=== PATIENT | male | born 1960 | race Hispanic/Latino ===

== ENCOUNTER 2023-04-23 14:47 | Emergency (ER) | payer MEDICAID ==
[~2023-04-23] VITALS: Ht 172.7 cm; Wt 88.5 kg
[2023-04-23 14:48] VITALS: BP 128/78; PULSE 80; RESP 16
[2023-04-23] MEDS ORDERED: KETOROLAC 30MG VIAL (30MG/ML) IM ONE (17:30)
[2023-04-23] MEDS ORDERED: DICL20GE TP (18:17)
[2023-04-23] MEDS ORDERED: LIDOP TP (18:17)
== END 2023-04-23 18:34 | disposition home or self-care (01) ==
LOC: EDH 14:47
DX: M12.862 Other specific arthropathies, not elsewhere classified, left knee (principal); I10 Essential (primary) hypertension; Z79.899 Other long term (current) drug therapy; Z98.890 Other specified postprocedural states
CPT/HCPCS: 99283; 73562; 96372; J1885

== ENCOUNTER 2023-10-05 17:17 | Observation (INO) | payer MEDICAID ==
[~2023-10-05] VITALS: Ht 175.3 cm; Wt 57.7 kg
[~2023-10-05 17:17] MED LIST: DICL20GE TP; LIDOP TP
[2023-10-05 18:06] LABS: BASOPHILS # (AUTO) 0.03 K/uL (0.00-0.20); BASOPHILS % (AUTO) 0.4 % (0.0-5.0); HEMATOCRIT 26.3 % (42-54); IMMATURE GRANULOCYTE ABSOLUTE 0.04 K/uL (0-1); LYMPHOCYTES # (AUTO) 1.7 K/uL (1.0-4.8); LYMPHOCYTES % (AUTO) 24.7 % (21.0-51.0); MEAN CORPUSCULAR HEMOGLOBIN 29.5 pg (27.0-33.0); MEAN CORPUSCULAR HGB CONC 33.5 g/dL (32.0-36.0); MEAN CORPUSCULAR VOLUME 88.3 fL (79-99); MONOCYTES # (AUTO) 0.3 K/uL (0.1-1.0); MONOCYTES % (AUTO) 4.6 % (3.0-13.0); NEUTROPHILS # (AUTO) 4.7 K/uL (1.8-7.7); NEUTROPHILS % (AUTO) 69.7 % (40.0-77.0); PLATELET COUNT (AUTO) 164 K/uL (130-400); RED BLOOD CELL COUNT(AUTO) 2.98 MIL/uL (4.50-6.20); RED CELL DISTRIBUTION WIDTH 15.5 % (11.0-15.5); WHITE BLOOD COUNT (AUTO) 6.7 K/uL (4.8-10.8)
[2023-10-05] MEDS: LACTATED RINGERS 1000ML 1,000 ML IV ONE (18:15)
[2023-10-05] MEDS: ACETAMINOPHEN 325 MG TAB PO ONE (18:15)
[2023-10-05 18:22] LABS: CARBON DIOXIDE 27 mmol/L (21-32); CHLORIDE 103 mmol/L (101-111); CREATININE 1.2 mg/dL (0.5-1.3); GLOMERULAR FILTR. RATE CALC 68 mL/min (>90); GLUCOSE,RANDOM 76 mg/dL (70-105); POTASSIUM 4.3 mmol/L (3.5-5.1); SODIUM SERUM 136 mmol/L (136-145); UREA NITROGEN, BLOOD 42 mg/dL (7-18)
[2023-10-05 18:28] LABS: INR 1.37 (0.85-1.15); PARTIAL THROMBOPLASTIN TIME 66.6 SEC (26.3-35.5); PROTHROMBIN TIME 14.3 SEC (9.6-11.6)
[2023-10-05 18:31] LABS: ALANINE AMINOTRANSFERASE 44 U/L (12-78); ALBUMIN 2.5 g/dL (3.5-5.0); AMMONIA 30 umol/L (11-32); ASPARTATE AMINOTRANSFERASE 40 U/L (10-37); BILIRUBIN,TOTAL 0.4 mg/dL (0.2-1.0); CREATINE KINASE, TOTAL 133 U/L (21-232); TOTAL PROTEIN, SERUM 6.1 g/dL (6.0-8.3)
[2023-10-05 18:33] LABS: ACETAMINOPHEN < 1 mcg/mL (10-29); ALCOHOL, BLOOD < 3 mg/dL (0-10)
[2023-10-05 18:35] LABS: B-TYPE NATRIURETIC PEPTIDE 34 pg/mL (0-100)
[2023-10-05] MEDS: ZIPRASIDONE MESYLATE 20 MG/VIAL IM ONE ×2 (19:54)
[2023-10-05 19:58] LABS: APPEARANCE,URINE CLEAR (CLEAR); BILIRUBIN,URINE NEGATIVE (NEGATIVE); COLOR,URINE LIGHT-YELLOW (YELLOW); GLUCOSE, URINE (UA) NEGATIVE (NEGATIVE); KETONES,URINE NEGATIVE (NEGATIVE); LEUKOCYTE ESTERASE ,URINE NEGATIVE Leu/uL (NEGATIVE); NITRATE,URINE NEGATIVE (NEGATIVE); OCCULT BLOOD,URINE NEGATIVE (NEGATIVE); PH,URINE 6.5 (5.0-8.0); PROTEIN,URINE NEGATIVE (NEGATIVE); UROBILINOGEN,URINE 0.2 mg/dL (0.2-1.0)
[2023-10-05 19:59] LABS: ADD UA MICROSCOPIC NO
[2023-10-05 20:05] LABS: AMPHET/METH SCREEN,URINE NEGATIVE (NEGATIVE); BARBITURATE SCREEN, URINE NEGATIVE (NEGATIVE); BENZODIAZEPINES SCREEN,URINE NEGATIVE (NEGATIVE); CANNABINOID SCREEN,URINE NEGATIVE (NEGATIVE); COCAINE SCREEN,URINE NEGATIVE (NEGATIVE); OPIATE SCREEN,URINE NEGATIVE (NEGATIVE); PHENCYCLIDINE SCREEN,URINE NEGATIVE (NEGATIVE)
[2023-10-05 20:49] VITALS: TEMP 98.7
[2023-10-05] MEDS ORDERED: ONDANSETRON 4MG INJ IV PRN (22:00)
[2023-10-05] MEDS ORDERED: FAMOTIDINE 20MG VIAL IV PRN (22:00)
[2023-10-05] MEDS ORDERED: DEXTROSE 50%-WATER 50 ML DISP.SYRIN IV PRN (22:00)
[2023-10-05] MEDS ORDERED: MAGNESIUM 2GM PREMIX 50ML 50 ML IV PRN (22:00)
[2023-10-05] MEDS ORDERED: GLUCAGON 1MG KIT 1 MG ML IM PRN (22:00)
[2023-10-05] MEDS ORDERED: ZOLPIDEM TARTRATE 5 MG TAB PO PRN (22:00)
[2023-10-05] MEDS ORDERED: ACETAMINOPHEN 325 MG TAB PO PRN ×3 (22:00)
[2023-10-05] MEDS ORDERED: POTASSIUM CHLORIDE 10% ELIXIR 20 MEQ/15 ML UDCUP PO PRN (22:00)
[2023-10-05] MEDS ORDERED: NITROGLYCERIN 0.4 MG SL TAB SL PRN (22:00)
[2023-10-05] MEDS ORDERED: LACTULOSE 20 GM/30 ML UDCUP PO PRN (22:00)
[2023-10-05] MEDS ORDERED: MAG/ALUM/SIMETH 30 ML UDCUP PO PRN (22:00)
[2023-10-05] MEDS ORDERED: POTASSIUM CHLORIDE 10MEQ SR TAB PO PRN (22:00)
[2023-10-05] MEDS ORDERED: OXYCODONE/ACETAMIN 5/325MG TAB PO PRN (22:00)
[2023-10-05] MEDS ORDERED: KETOROLAC 15MG/ML VIAL (15MG/ML) IV PRN (22:00)
[2023-10-05] MEDS ORDERED: GUAIFENESIN-DM 200/20 MG 10 ML PO PRN (22:00)
[2023-10-05] MEDS ORDERED: HYDRALAZINE 20MG/ML VIAL IV PRN (22:00)
[2023-10-05] MEDS ORDERED: POTASSIUM CHLORIDE 10MEQ/100ML 100 ML IV PRN (22:00)
[2023-10-05] MEDS: LACTATED RINGERS 1000ML 1,000 ML IV SCH (22:50)
[2023-10-05 23:01] VITALS: O2SAT 98
[2023-10-05] MEDS: DiphenhydrAMINE HCL 50 MG/ML VIAL IV PRN (23:44)
[2023-10-05 23:55] VITALS: BP 157/67; PULSE 69; RESP 18
[2023-10-06 04:00] VITALS: BP 121/75; PULSE 86; RESP 18
[2023-10-06] MEDS: ZIPRASIDONE MESYLATE 20 MG/VIAL IM ONE (05:28)
[2023-10-06] MEDS: INSULIN HUMULIN R 100 UNIT/ML 3ML SQ SCH (05:29)
[2023-10-06] MEDS: FAMOTIDINE 20MG VIAL IV SCH (09:00)
[2023-10-06] MEDS: HEPARIN 5,000 UNIT VIAL SQ SCH (09:00)
[2023-10-06 11:46] VITALS: BP 119/72; PULSE 66; RESP 18
== END 2023-10-06 13:45 | disposition left against medical advice (07) ==
LOC: EDH 17:17 → EDHIP 17:18 → 3BH 23:33
PROVIDERS: ADMIT Internal Medicine; ATTEND Internal Medicine
DX: T67.5XXA Heat exhaustion, unspecified, initial encounter (principal); E86.0 Dehydration; D64.9 Anemia, unspecified; I10 Essential (primary) hypertension; R41.82 Altered mental status, unspecified; Z79.899 Other long term (current) drug therapy; Z98.890 Other specified postprocedural states; X30.XXXA Exposure to excessive natural heat, initial encounter
CPT/HCPCS: 96374; 96372 ×2; 96361 ×2; 99285; 82550; 83735; 84484; 80053; 83880; 80305; 82140; 85025; 85610; 85730; 87040 ×2; 83605; 81003; 36415; 71045; 70450; 93005; 82948 ×2; 93306; G0378 ×15; J7120 ×2; J1200; J3486 ×2

== ENCOUNTER 2024-03-29 10:14 | Emergency (ER) | payer SELFPAY ==
[~2024-03-29] VITALS: Ht 182.9 cm; Wt 61.2 kg
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
[2024-03-29 10:50] LABS: BASOPHILS # (AUTO) 0.02 K/uL (0.00-0.20); BASOPHILS % (AUTO) 0.3 % (0.0-5.0); EOSINOPHILS # (AUTO) 0.05 K/uL (0.00-0.70); EOSINOPHILS % (AUTO) 0.7 % (0.0-8.0); HEMATOCRIT 33.6 % (42-54); IMMATURE GRANULOCYTE ABSOLUTE 0.03 K/uL (0-1); LYMPHOCYTES # (AUTO) 1.5 K/uL (1.0-4.8); LYMPHOCYTES % (AUTO) 20.2 % (21.0-51.0); MEAN CORPUSCULAR HEMOGLOBIN 24.6 pg (27.0-33.0); MEAN CORPUSCULAR HGB CONC 30.4 g/dL (32.0-36.0); MONOCYTES # (AUTO) 0.4 K/uL (0.1-1.0); NEUTROPHILS # (AUTO) 5.3 K/uL (1.8-7.7); NEUTROPHILS % (AUTO) 73.4 % (40.0-77.0); PLATELET COUNT (AUTO) 314 K/uL (130-400); RED BLOOD CELL COUNT(AUTO) 4.15 MIL/uL (4.50-6.20); RED CELL DISTRIBUTION WIDTH 15.6 % (11.0-15.5); WHITE BLOOD COUNT (AUTO) 7.3 K/uL (4.8-10.8)
[2024-03-29 11:11] LABS: ALCOHOL, BLOOD < 3 mg/dL (0-10); CARBON DIOXIDE 30 mmol/L (21-32); CHLORIDE 103 mmol/L (101-111); CREATINE KINASE, TOTAL 89 U/L (21-232); CREATININE 0.7 mg/dL (0.5-1.3); GLOMERULAR FILTR. RATE CALC 104 mL/min (>90); GLUCOSE,RANDOM 94 mg/dL (70-105); POTASSIUM 3.7 mmol/L (3.5-5.1); SODIUM SERUM 139 mmol/L (136-145); UREA NITROGEN, BLOOD 15 mg/dL (7-18)
--- NOTE | 2024-03-29 11:20 | HMCIMG ---
CHEST 1VW HISTORY: Chest pain COMPARISON: 10/05/2023 FINDINGS: A frontal projection of the chest was obtained. No acute pulmonary infiltrates is seen. The heart is normal in size. Degenerative changes are seen. Prominent interstitial markings are seen. No evidence of aortic calcification is seen. IMPRESSION: 1. No acute pulmonary infiltrate is seen.
[2024-03-29 11:25] LABS: SALICYLATE < 2.8 mg/dL (2.8-20.0)
[2024-03-29 11:26] LABS: ACETAMINOPHEN < 1 mcg/mL (10-29)
[2024-03-29 13:25] VITALS: BP 135/80; PULSE 70; RESP 16; TEMP 98.3; O2SAT 98
--- NOTE | 2024-03-30 08:44 | EKG ---
[facility] Test Date: 2024-03-29 Test Time: 10:51:24 Pat Name: CHRISTELLE NEWELL Department: [facility] Patient ID: [facility] [id number] Room: Gender: M [employer] Lounge Manager: [phone] : 1960 Requested By: SONJA CONKLIN Order Number: [id number] Reading MD: Jj Harris Measurements Intervals Vest Rate: 113 P: 54 MN: 132 QRS: -46 QRSD: 119 T: 46 QT: 338 QTc: 463 Interpretive Statements Sinus tachycardia RBBB and LAFB Electronically Signed On 03-30-2024 20:15:41 BATH STEWARD/STEWARDESS by Jj Harris Please click the below link to view image of tracing.
== END 2024-03-29 13:31 | disposition left against medical advice (07) ==
LOC: EDH 10:14
DX: M25.559 Pain in unspecified hip (principal); I10 Essential (primary) hypertension; Z79.1 Long term (current) use of non-steroidal anti-inflammatories (NSAID)
CPT/HCPCS: 99285; 71045; 82550; 80048; 85025; 36415; 93005; G0481

== ENCOUNTER 2024-07-08 11:56 | Emergency (ER) | payer SELFPAY ==
[~2024-07-08] VITALS: Ht 182.9 cm; Wt 60.3 kg
[2024-07-08 11:58] VITALS: BP 148/95; PULSE 112; RESP 14; TEMP 97.7; O2SAT 98
--- NOTE | 2024-07-08 12:20 | ERN ---
ED Note History of Present Illness Stated Complaint: BILATERAL LOWER EXTREMITY DISCOMFORT, REDNESS Chief Complaint: LOWER EXTREMITY EDEMA Time Seen by MD: 12:01 Dictation: PATIENT IS A 63-YEAR-OLD MALE COMING IN TODAY WITH COMPLAINTS OF CHRONIC LEFT HIP PAIN HE HAS HAD FOR SIX YEARS SINCE HIS SURGERY IN [facility]. HE DENIES ANY RECENT TRAUMA OR FALLS. HAS NOT BEEN TO SEE HIS PRIMARY CARE DOCTOR NOR HAS BEEN BACK TO SEE THE SURGEON SINCE THE SURGERY. [facility]AL NEUROVASCULAR CMS INTACT. Allergies: Coded Allergies: No Known Drug Allergies (Unverified Allergy, Unknown, 04/23/23) Home Meds Active Scripts Lidocaine (Lidoderm Patch 5%) 5 % Patch, 1 PATCH TP DAILY PRN for PAIN, #3 ADH.PATCH 12 hours on/12 hours off localized area of pain to knee Prov:VERNA GENAO 04/23/23 Diclofenac Sodium (Voltaren Arthritis Pain) 1 % Gel..gram., 20 GM TP BID, #100 GM Prov:VERNA GENAO 04/23/23 Past Medical History Past Medical History: Arthritis, Other (CHRONIC LEFT HIP PAIN) Additional Past Medical Hx: AUTISM, INSOMNIA Surgical History: Other Surgical History Other: LEFT HIP RN Note Reviewed/Agreed w/PFSH: Yes Review of System Dictation CONSTITUTIONAL: NEGATIVE EXCEPT FOR HPI HEAD/FACE: NEGATIVE EXCEPT FOR HPI EENT: NEGATIVE EXCEPT FOR HPI RESPIRATORY: NEGATIVE EXCEPT FOR HPI GASTROINTESTINAL/ABDOMINAL: NEGATIVE EXCEPT FOR HPI GENITOURINARY: NEGATIVE EXCEPT FOR HPI MUSCULOSKELETAL: NEGATIVE EXCEPT FOR HPI CHRONIC LEFT HIP PAIN INTEGUMENTARY: NEGATIVE EXCEPT FOR HPI NEUROLOGICAL/PSYCH: NEGATIVE EXCEPT FOR HPI HEMATOLOGIC/LYMPHATIC: NEGATIVE EXCEPT FOR HPI ALL SYSTEMS NEGATIVE, EXCEPT NOTED ABOVE. 13 POINT REVIEW OF SYSTEMS ASSESSED AND ALL NEGATIVE EXCEPT FOR ABOVE. Initial Vital Sign VS Vital Signs Date Time Temp Pulse Resp B/P (MAP) Pulse Ox O2 Delivery O2 Flow Rate FiO2 07/08/24 11:58 97.7 112 14 148/95 98 Room Air 0 Physical Exam Dictation VITAL SIGNS REVIEWED GENERAL APPEARANCE: ALERT, ORIENTED X 3, MILD ACUTE DISTRESS, WELL DEVELOPED, NOURISHED. HEAD AND FACE: NON-TRAUMATIC. EYES: PERRL, PINK CONJUNCTIVAS, EYELID NO TRAUMA, ANTERIOR CHAMBER WITH ARCUS SENILIS. EARS: PINNAS INTACT AND NO SIGNS OF TRAUMA OR ERYTHEMA EAR CANALS CLEAR AND NO DISCHARGE TM NO ERYTHEMA NOSE: NO DISCHARGE, NO BLEEDING. OROPHARYNX: MOUTH NORMAL, TONGUE PINK, PHARYNX CLEAR,NO ERYTHEMA, TONSILS NO EXUDATES, NO ABSCESSES NOTED, MUCOUS MEMBRANE MOIST NECK: SUPPLE, NON-TENDER, NO THYROMEGALY, NO MASSES, NO JVD, NO BRUITS BREAST:DEFERRED CHEST:NO TENDERNESS, NO CREPITUS, NO PARADOXICAL MOVEMENT, NO RETRACTIONS LUNGS:CLEAR, WELL-VENTILATED, SYMMETRIC, NO RALES, NO WHEEZING, NO RHONCHI, NO STRIDOR, GOOD BREATH SOUNDS BILATERALLY HEART: REGULAR RATE, REGULAR RHYTHM, NO MURMUR, NO GALLOPS VASCULAR: NO PERIPHERAL EDEMA, ABDOMEN: SOFT, POSITIVE BOWEL SOUNDS, NONDISTENDED, NO GUARDING, NONTENDER, NO REBOUND, NO MASSES NO HEPATOMEGALY, NO SPLENOMEGALY, NO ARREOLA'S SIGN, NO HERNIAS. RECTAL: DEFERRED GENITAL: DEFERRED NEUROLOGICAL: NORMAL SPEECH, MOTOR FUNCTION INTACT, SENSORY FUNCTION INTACT MUSCULOSKELETAL: NECK NONTENDER, FULL RANGE OF MOTION, BACK NONTENDER, FULL RANGE OF MOTION, EXTREMITIES: LEFT LATERAL HIP PAIN. NO SHORTENING OR ROTATION OF LEFT LEG SKIN: COLOR PINK, DRY, NO TURGOR, NO RASH, NO LACERATIONS, NO ABRASIONS, NO CONTUSIONS. LYMPHATIC: DEFERRED Results (Laboratory/Radiology) Laboratory/Radiology 1400/LEFT HIP X-RAY DEMONSTRATES SURGICALLY REVISED HIP JOINT TO INCLUDE NO FEMORAL NECK OR HEAD. PATIENT STATES THIS WAS DONE IN [facility] [address] BY [address] MUSTAFA Labs Reviewed?: Yes ED Course ED Course Orders Procedure Category Date Status Time Hip Unilat 2-3vw Left RAD 07/08/24 Taken 12:17 Ibuprofen 800 Mg Tab PHA 07/08/24 Complete (Motrin) 12:30 Current Medications Medications (Trade) Dose Ordered Sig/Paco Route PRN Reason Start Time Stop Time Status Last Admin Dose Admin Ibuprofen (moTRIN) 800 mg ONCE ONCE PO 07/08/24 12:30 07/08/24 12:31 DC Vital Signs Date Time Temp Pulse Resp B/P (MAP) Pulse Ox O2 Delivery O2 Flow Rate FiO2 07/08/24 11:58 97.7 112 14 148/95 98 Room Air 0 Medical Decision Making MDM MEDICAL DECISION-MAKING BASED ON PAIN MANAGEMENT AND LEFT HIP X-RAY. PATIENT HAS A SURGICALLY MODIFY LEFT HIP THAT INCLUDES NO JOINT DISCHARGED HOME WITH PAIN MEDICINE TOLD TO SEE DR. MUSTAFA, HIS SURGEON IN THE NEXT 1-2 DAYS DX & DISP Disposition: Discharge Departure Condition: Stable Scripts Ibuprofen (Ibuprofen) 600 Mg Tablet 600 MG PO Q6H PRN for PAIN, #30 TAB Prov: MONICA SANCHEZ NP 07/08/24 Additional Instructions: FOLLOW-UP WITH PRIMARY CARE PROVIDER IN 1 TO 2 DAYS. TAKE MEDICATIONS DIRECTED HERE IN THE EMERGENCY ROOM. OKAY TO CONTINUE HOME MEDICATIONS UNLESS OTHERWISE DISCUSSED DURING YOUR VISIT IN THE EMERGENCY ROOM TODAY. RETURN TO YOUR NEAREST EMERGENCY ROOM IF SYMPTOMS WORSEN OR IF THERE IS NO IMPROVEMENT. CALL 911 IF YOU NEED IMMEDIATE ASSISTANCE. TAKE TYLENOL OR MOTRIN [id number] NEEDED AND IF NO CONTRAINDICATIONS ARE PRESENT. INCREASE ORAL HYDRATION. A WOUND CULTURE OR URINE CULTURE WAS ORDERED HERE IN THE EMERGENCY ROOM DEPARTMENT PLEASE FOLLOW-UP WITH PRIMARY CARE PROVIDER AND ADVISE THEM TO GET REPEAT PORTS FROM OUR FACILITY. IF YOU HAD ANY JANNIE WRAP/SPLINTS THAT WERE APPLIED HERE, PLEASE DO NOT REMOVE THEM UNTIL YOU SEE YOUR PRIMARY CARE OR SPECIALTY. DIET AND ACTIVITY TOLERATED, TAKE IBUPROFEN NEEDED FOR PAIN., FOLLOW UP WITH ORTHOPEDIC SURGEON WHO PERFORMED HER SURGERY IN THE NEXT SEVERAL DAYS, CALL FOR AN APPOINTMENT. Referrals: JOCELINE CROSS (PCP) JOSSELIN MUSTAFA DO Time of Disposition: 14:03 I have reviewed the case, and I agree with, Diagnosis and Plan MONICA SANCHEZ NP Jul 08, 2024 12:20
[2024-07-08] MEDS ORDERED: ibuPROFEN 800 MG TAB PO ONE (12:30)
[2024-07-08] MEDS ORDERED: IBUP-2070 PO (14:03)
--- NOTE | 2024-07-08 14:36 | HMCIMG ---
HIP UNILAT 2-3VW LEFT INDICATION: LEFT HIP PAIN ???SIX YEARS??? NO TRAUMA OR FALL TECHNIQUE: HIP UNILAT 2-3VW LEFT. FINDINGS AND IMPRESSION: The left femoral head/neck is absent which may may represent postsurgical changes versus chronic fracture/dislocation. There is diffuse soft tissue swelling No radiopaque foreign body is identified.
--- NOTE | 2024-07-08 15:00 | NUR ---
UNABLE TO REASSESS VITAL SIGNS. PATIENT NOT IN LOBBY,.
--- NOTE | 2024-07-08 15:10 | NUR ---
PATIENT CALLED FROM LOBBY, NO ANSWER
--- NOTE | 2024-07-08 15:15 | NUR ---
PATIENT LEFT WITHOUT DISCHARGE INSTRUCTIONS/PAPERWORK
== END 2024-07-08 15:15 | disposition home or self-care (01) ==
LOC: EDH 11:56
DX: G89.29 Other chronic pain (principal); M25.552 Pain in left hip; F84.0 Autistic disorder; M19.90 Unspecified osteoarthritis, unspecified site; Z79.1 Long term (current) use of non-steroidal anti-inflammatories (NSAID); Z79.899 Other long term (current) drug therapy; Z98.890 Other specified postprocedural states
CPT/HCPCS: 73502; 99283

== ENCOUNTER 2024-07-11 07:58 | Emergency (ER) | payer SELFPAY ==
[~2024-07-11] VITALS: Ht 182.9 cm; Wt 59.9 kg
[~2024-07-11 07:58] MED LIST changes: +IBUP-2070 PO
[2024-07-11] MEDS ORDERED: ACET-66 PO (08:26)
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
[2024-07-11] MEDS: ketOROlac 15MG/ML VIAL (15MG/ML) IM ONE (09:20)
[2024-07-11 09:47] VITALS: BP 128/83; PULSE 85; RESP 18; TEMP 97.8; O2SAT 98
== END 2024-07-11 09:55 | disposition home or self-care (01) ==
LOC: EDH 07:58
DX: M25.522 Pain in left elbow (principal); F84.0 Autistic disorder; I10 Essential (primary) hypertension; M19.90 Unspecified osteoarthritis, unspecified site; Z79.1 Long term (current) use of non-steroidal anti-inflammatories (NSAID); Z98.890 Other specified postprocedural states
CPT/HCPCS: 99283; 96372; J1885

== ENCOUNTER 2024-07-15 21:13 | Emergency (ER) | payer SELFPAY ==
[~2024-07-15] VITALS: Ht 182.9 cm; Wt 60.3 kg
[~2024-07-15 21:13] MED LIST changes: +ACET-66 PO
[2024-07-15] MEDS: acetaMINOPHEN 325 MG TAB PO ONE (21:47)
[2024-07-15 22:49] VITALS: TEMP 99.4
[2024-07-15 22:50] VITALS: BP 138/75; PULSE 94; RESP 16; TEMP 99.4; O2SAT 99
--- NOTE | 2024-07-15 23:03 | ERN ---
ED Note History of Present Illness Stated Complaint: L HIP PAIN RADIATING TO L KNEE Chief Complaint: Hip Pain/Injury Time Seen by MD: 21:30 Time Seen by Midlevel: 21:30 Dictation: Patient is a 63-year-old male with history of insomnia, hypertension who presents to the emergency department via EMS for a complaints of left hip pain. Patient reports pain has been chronic for over a year. Patient had had multiple ER visits for similar complaint. Denies any recent trauma. No other complaints reported. Allergies: Coded Allergies: No Known Drug Allergies (Unverified Allergy, Unknown, 04/23/23) Home Meds Active Scripts Acetaminophen (Tylenol) 500 Mg Tab, 1000 MG PO QID for pain, #30 TAB Prov:VANESSA DESIR DO 07/11/24 Ibuprofen (Ibuprofen) 600 Mg Tablet, 600 MG PO Q6H PRN for PAIN, #30 TAB Prov:MONICA SANCHEZ GLORY HOLE TENDER 07/08/24 Lidocaine (Lidoderm Patch 5%) 5 % Patch, 1 PATCH TP DAILY PRN for PAIN, #3 ADH.PATCH 12 hours on/12 hours off localized area of pain to knee Prov:VERNA GENAO 04/23/23 Diclofenac Sodium (Voltaren Arthritis Pain) 1 % Gel..gram., 20 GM TP BID, #100 GM Prov:VERNA GENAO 04/23/23 Past Medical History Past Medical History: Arthritis, Hypertension, Other Additional Past Medical Hx: AUTISM, INSOMNIA Surgical History: Other Surgical History Other: LEFT HIP, BILAT KNEE RN Note Reviewed/Agreed w/PFSH: Yes Review of System Dictation Constitutional: Negative for fever,chills, and weight loss Eyes: Negative for injury, pain,redness, and discharge ENT: Negative for injury,pain or swelling Cardiovascular: Negative for chest pain, palpitations, and edema Respiratory: Negative for shortness of breath, cough, and wheezing, Abdomen/GI: Negative for abdominal pain, nausea, vomiting, diarrhea, and constipation Back: Negative for injury and pain : Negative for injury, bleeding and discharge MS/Extremity: Positive for left hip pain Skin: Negative for rash, and discoloration Neuro: Negative for headache, weakness, numbness, tingling, and seizure Psych: Negative for suicide ideation, homicidal ideation, and hallucinations Initial Vital Sign VS Vital Signs Date Time Temp Pulse Resp B/P (MAP) Pulse Ox O2 Delivery O2 Flow Rate FiO2 07/15/24 21:14 100.2 102 20 129/78 98 Room Air 0 07/15/24 22:50 21 Physical Exam Dictation Vital Signs reviewed General Appearance: Alert, oriented x 3, no acute distress, well developed, nourished. Head and Face: non-traumatic. Eyes: PERRL, pink conjunctivas, eyelid no trauma, anterior chamber with arcus senilis. Ears: Pinnas intact and no signs of trauma or erythema ear canals clear and no discharge TM no erythema Nose: No discharge, no bleeding. Oropharynx: Mouth normal, tongue pink. pharynx clear,no erythema, tonsils no exudates, no abscesses noted, mucous membrane moist Neck: Supple, non-tender, no thyromegaly, no masses, no JVD, no bruits Breast:Deferred Chest:No tenderness, no crepitus, no paradoxical movement, no retractions Lungs:Clear, well-ventilated, symmetric, no rales, no wheezing, no rhonchi, no stridor, good breath sounds bilaterally Heart: Regular rate, regular rhythm, no murmur, no gallops Vascular: no peripheral edema, Abdomen: Soft, positive bowel sounds, nondistended, no guarding, nontender, no rebound, no masses no hepatomegaly, no splenomegaly, no Dumas's sign, no hernias. Rectal: Deferred Genital: Deferred Neurological: Normal speech, motor function intact, sensory function intact Musculoskeletal: Neck nontender, full range of motion, back nontender, full range of motion, Extremities: nontender, full range of motion s light of left hip. Patient reports is chronic Skin: Color pink, dry, no turgor, no rash, no lacerations, no abrasions, no contusions. Lymphatic: Deferred Results (Laboratory/Radiology) Labs Reviewed?: Yes ED Course ED Course Orders Procedure Category Date Status Time Acetaminophen 325 Tab PHA 07/15/24 Complete (Tylenol 325mg Tab 22:00 Current Medications Medications (Trade) Dose Ordered Sig/Paco Route PRN Reason Start Time Stop Time Status Last Admin Dose Admin Acetaminophen (TYLenol 325MG TAB) 650 mg ONCE ONCE PO 07/15/24 22:00 07/15/24 22:01 DC 07/15/24 21:47 Vital Signs Date Time Temp Pulse Resp B/P (MAP) Pulse Ox O2 Delivery O2 Flow Rate FiO2 07/15/24 22:50 99.3 94 16 138/75 99 Room Air* 0 21 07/15/24 21:47 100.2 07/15/24 21:14 100.2 102 20 129/78 98 Room Air 0 Medical Decision Making MDM Patient is a 63-year-old male with history of insomnia, hypertension who presents to the emergency department via EMS for a complaints of left hip pain. Patient reports pain has been chronic for over a year. Patient had had multiple ER visits for similar complaint. Denies any recent trauma. No other complaints reported. Patient with chronic hip pain. Was seen here last month for same complaint. And discharge home. Was giving Tylenol ER. Patient with no other complaints. Differential diagnosis: Left hip contusion, chronic hip pain Need for hospitalization: Patient does not meet criteria for hospitalization. There are no social concerns with this patient. DX & DISP Disposition: Discharge Departure Impression: Primary Impression: Chronic hip pain Condition: Stable Additional Instructions: FOLLOW-UP WITH PRIMARY CARE PROVIDER IN 1 TO 2 DAYS. TAKE MEDICATIONS DIRECTED HERE IN THE EMERGENCY ROOM. OKAY TO CONTINUE HOME MEDICATIONS UNLESS OTHERWISE DISCUSSED DURING YOUR VISIT IN THE EMERGENCY ROOM TODAY. RETURN TO YOUR NEAREST EMERGENCY ROOM IF SYMPTOMS WORSEN OR IF THERE IS NO IMPROVEMENT. CALL 911 IF YOU NEED IMMEDIATE ASSISTANCE. TAKE TYLENOL OR MOTRIN [id number] NEEDED AND IF NO CONTRAINDICATIONS ARE PRESENT. INCREASE OR AL HYDRATION. A WOUND CULTURE OR URINE CULTURE WAS ORDERED HERE IN THE EMERGENCY ROOM DEPARTMENT PLEASE FOLLOW-UP WITH PRIMARY CARE PROVIDER AND ADVISE THEM TO GET REPEAT PORTS FROM OUR FACILITY. IF YOU HAD ANY JANNIE WRAP/SPLINTS THAT WERE APPLIED HERE, PLEASE DO NOT REMOVE THEM UNTIL YOU SEE YOUR PRIMARY CARE OR SPECIALTY. Referrals: JOCELINE CROSS (PCP) Time of Disposition: 23:02 I have reviewed the case, and I agree with, Diagnosis and Plan RASHID BARRAGAN Jul 15, 2024 23:03
== END 2024-07-15 23:19 | disposition home or self-care (01) ==
LOC: EDH 21:13
DX: G89.29 Other chronic pain (principal); M25.552 Pain in left hip; F84.0 Autistic disorder; I10 Essential (primary) hypertension; M19.90 Unspecified osteoarthritis, unspecified site; Z79.1 Long term (current) use of non-steroidal anti-inflammatories (NSAID); Z98.890 Other specified postprocedural states
CPT/HCPCS: 99284

== ENCOUNTER 2024-07-25 11:54 | Emergency (ER) | payer SELFPAY ==
[~2024-07-25] VITALS: Ht 182.9 cm; Wt 59.9 kg
--- NOTE | 2024-07-25 12:01 | NUR ---
ATTEMPTED TO PLACE NEW ID BAND ON PT. PT DID NOT WANT NEW ID BRACELET PUT ON. MADE PRIMARY NURSE AWARE.
[2024-07-25 12:36] LABS: BASOPHILS # (AUTO) 0.02 K/uL (0.00-0.20); BASOPHILS % (AUTO) 0.5 % (0.0-5.0); EOSINOPHILS # (AUTO) 0.05 K/uL (0.00-0.70); EOSINOPHILS % (AUTO) 1.2 % (0.0-8.0); HEMATOCRIT 29.7 % (42-54); IMMATURE GRANULOCYTE ABSOLUTE 0.03 K/uL (0-1); LYMPHOCYTES # (AUTO) 1.7 K/uL (1.0-4.8); LYMPHOCYTES % (AUTO) 39.3 % (21.0-51.0); MEAN CORPUSCULAR HEMOGLOBIN 24.1 pg (27.0-33.0); MEAN CORPUSCULAR HGB CONC 30.3 g/dL (32.0-36.0); MEAN CORPUSCULAR VOLUME 79.6 fL (79-99); MONOCYTES # (AUTO) 0.4 K/uL (0.1-1.0); MONOCYTES % (AUTO) 9.6 % (3.0-13.0); NEUTROPHILS # (AUTO) 2.1 K/uL (1.8-7.7); NEUTROPHILS % (AUTO) 48.7 % (40.0-77.0); PLATELET COUNT (AUTO) 340 K/uL (130-400); RED BLOOD CELL COUNT(AUTO) 3.73 MIL/uL (4.50-6.20); RED CELL DISTRIBUTION WIDTH 17.8 % (11.0-15.5); WHITE BLOOD COUNT (AUTO) 4.3 K/uL (4.8-10.8)
[2024-07-25 12:45] LABS: CREATININE 0.9 mg/dL (0.5-1.3); POTASSIUM 3.5 mmol/L (3.5-5.1)
--- NOTE | 2024-07-25 12:45 | HMCIMG ---
PORTABLE CHEST RADIOGRAPH INDICATION: cp COMPARISON: 03/29/2024 FINDINGS: Heart size is normal. The pulmonary vascularity and jesusita appear normal. No abnormal pulmonary parenchymal opacity or consolidation identified. No significant pleural effusion noted. No pneumothorax detected. IMPRESSION: No radiographic evidence for any acute cardiopulmonary process.
[2024-07-25 12:46] LABS: INR 1.06 (0.85-1.15); PROTHROMBIN TIME 11.2 SEC (9.6-11.6)
--- NOTE | 2024-07-25 12:47 | EKG ---
[facility] Test Date: 2024-07-25 Test Time: 12:27:10 Pat Name: CHRISTELLE NEWELL Department: [facility] Room: Gender: M Expense Clerk: [id number] : 1960 Requested By: SONJA CONKLIN Order Number: [id number] Reading MD: Paige Harris Measurements Intervals [place] Rate: 86 P: 70 ID: [id number] QRS: -56 QRSD: 128 T: -37 QT: 388 QTc: 465 Interpretive Statements Sinus rhythm Nonspecific IVCD with LAD Left ventricular hypertrophy Nonspecific T abnormalities, inferior leads Compared to ECG 03/29/2024 10:51:24 Intraventricular conduction delay now present Left ventricular hypertrophy now present T-wave abnormality now present Sinus tachycardia no longer present Left anterior fascicular block no longer present Right bundle-branch block no longer present Electronically Signed On 07-28-2024 09:32:22 CDT by Paige Harris Please click the below link to view image of tracing.
[2024-07-25 12:48] LABS: PARTIAL THROMBOPLASTIN TIME 29.9 SEC (26.3-35.5)
[2024-07-25 12:50] LABS: MAGNESIUM 1.7 mg/dL (1.80-2.40)
[2024-07-25] MEDS: LACTATED RINGERS 1000ML 1,000 ML IV ONE (13:02)
[2024-07-25 13:21] LABS: B-TYPE NATRIURETIC PEPTIDE 63 pg/mL (0-100)
--- NOTE | 2024-07-25 13:35 | ERN ---
General Chief Complaint: Weakness Stated Complaint: WEAKNESS Time Seen by MD: 11:56 Source: patient, EMS History of Present Illness Initial Comments SIXTY-THREE 3-YEAR-OLD MALE COMING IN COMPLAINING OF LEFT SHOULDER PAIN. PER PATIENT HE HAS A HISTORY OF FRACTURES IN THE LEFT ARM IN HIS HAD CHRONIC PAIN. HE STATES THAT HE GOT A FLARE-UP TODAY DECIDED COME IN FOR FURTHER EVALUATION. ALONG WITH THIS PATIENT STATES HE HAS A HISTORY OF TOBACCO ABUSE FREQUENTLY PRESENTS WITH SHORTNESS OF BREATH AND COUGH. Allergies: Coded Allergies: No Known Drug Allergies (Unverified Allergy, Unknown, 04/23/23) Home Meds Active Scripts Acetaminophen (Tylenol) 500 Mg Tab, 1000 MG PO QID for pain, #30 TAB Prov:VANESSA DESIR DO 07/11/24 Ibuprofen (Ibuprofen) 600 Mg Tablet, 600 MG PO Q6H PRN for PAIN, #30 TAB Prov:MONICA SANCHEZ FOOD SERVICE HELPER 07/08/24 Lidocaine (Lidoderm Patch 5%) 5 % Patch, 1 PATCH TP DAILY PRN for PAIN, #3 ADH.PATCH 12 hours on/12 hours off localized area of pain to knee Prov:VERNA GENAO 04/23/23 Diclofenac Sodium (Voltaren Arthritis Pain) 1 % Gel..gram., 20 GM TP BID, #100 GM Prov:VERNA GENAO 04/23/23 Past Medical History Past Medical History: No Pertinent History Medical History Other: AUTISM, INSOMNIA Past Surgical History: None Surgical History Other: LEFT HIP, BILAT KNEE ROS Dictation CONSTITUTIONAL: NO CHILLS, NO FEVER, NO WEAKNESS, NO DIAPHORESIS, NO MALAISE. HEAD/FACE: NO SIGNS OF TRAUMA. EENT: NO EYE PAIN, NO BLURRED VISION, NO TEARING, NO DOUBLE VISION, NO EAR PAIN, NO EAR DISCHARGE, NO NOSE PAIN, NO NASAL CONGESTION, NO THROAT PAIN, NO THROAT SWELLING, NO MOUTH PAIN. RESPIRATORY: NO COUGH, NO ORTHOPNEA, NO SOB, NO STRIDOR, NO WHEEZING. CARDIOVASCULAR: NO CHEST PAIN, NO EDEMA, NO PALPITATIONS, NO SYNCOPE. GASTROINTESTINAL/ABDOMINAL: NO ABDOMINAL PAIN, NO CONSTIPATION, NO DIARRHEA, NO NAUSEA, NO VOMITING. GENITOURINARY: NO ABNORMAL DISCHARGE, NO DYSURIA, NO FREQUENT URINATION, NO HEMATURIA. NO COMPLAINTS OF PAIN IN THE GENITALS. MUSCULOSKELETAL: NO BACK PAIN, NO GOUT, NO JOINT PAIN, NO JOINT SWELLING, NO MUSCLE PAIN, NO MUSCLE STIFFNESS, NO NECK PAIN. INTEGUMENTARY: NO CHANGE IN COLOR, NO CHANGE IN HAIR/NAILS, NO DRYNESS, NO LESION, NO LUMPS, NO RASH. NEUROLOGICAL/PSYCH: NO ANXIETY, NOT DEPRESSED, NO EMOTIONAL PROBLEM, NO HEADACHE, NO NUMBNESS, NO PRE-EXISTING DEFICIT, NO HISTORY OF SEIZURES, NO TREMORS, NO WEAKNESS. HEMATOLOGIC/LYMPHATIC: NOT ANEMIC, NO HISTORY OF BLOOD CLOTS, NO APPARENT BLEEDING, NO BRUISING, GLANDS NOT SWOLLEN. ALL SYSTEMS NEGATIVE, EXCEPT NOTED. Physical Exam Physical Exam Dictation VITAL SIGNS: REVIEWED. GENERAL APPEARANCE: ALERT, ORIENTED X3, NO ACUTE DISTRESS, OBESE. HEAD AND FACE: NON-TRAUMATIC. EYES: PERRL, PINK CONJUNCTIVAS, EYELID NO TRAUMA, ANTERIOR CHAMBER CLEAR. EARS: PINNAS INTACT AND NO SIGNS OF TRAUMA OR ERYTHEMA. EAR CANALS CLEAR AND NO DISCHARGE. TMS NO ERYTHEMA. NOSE: NO DISCHARGE, NO BLEEDING. OROPHARYNX: MOUTH NORMAL, TEETH NO CARIES, TONGUE PINK. PHARYNX CLEAR, NO ERYTHEMA. TONSILS NO EXUDATES, NO ABSCESSES NOTED. MUCOUS MEMBRANE MOIST. NECK: SUPPLE, NON-TENDER, NO THYROMEGALY, NO MASSES, NO JVD, NO BRUITS. BREAST: DEFERRED. CHEST: NO TENDERNESS, NO CREPITUS, NO PARADOXICAL MOVEMENT, NO RETRACTIONS. LUNGS: CLEAR, WELL-VENTILATED, SYMMETRIC, NO RALES, NO WHEEZING, NO RHONCHI, NO STRIDOR, GOOD BREATH SOUNDS BILATERALLY. HEART: REGULAR RATE, REGULAR RHYTHM, NO MURMUR, NO GALLOPS. VASCULAR: NO PERIPHERAL EDEMA. ABDOMEN: SOFT, POSITIVE BOWEL SOUNDS, NONDISTENDED, NO GUARDING, NONTENDER, NO REBOUND, NO MASSES NO HEPATOMEGALY, NO SPLENOMEGALY, NO ARREOLA'S SIGN, NO HERNIAS. RECTAL: DEFERRED. GENITAL: DEFERRED. NEUROLOGICAL: NORMAL SPEECH, GROSS MOTOR FUNCTION INTACT, GROSS SENSORY FUNCTION INTACT. MUSCULOSKELETAL: NECK NONTENDER, FULL RANGE OF MOTION, BACK NONTENDER, FULL RANGE OF MOTION. EXTREMITIES: NONTENDER, FULL RANGE OF MOTION. SKIN: COLOR PINK, DRY, NO TURGOR, NO RASH, NO LACERATIONS, NO ABRASIONS, NO CONTUSIONS. LYMPHATICS: DEFERRED. Results Laboratory and Microbiology Lab and Micro Result Laboratory Tests Test 07/25/24 12:27 White Blood Count 4.3 K/uL (4.8-10.8) L Red Blood Count 3.73 MIL/uL (4.50-6.20) L Hemoglobin 9.0 g/dL (14.0-18.0) L Hematocrit 29.7 % (42-54) L Mean Corpuscular Volume 79.6 fL (79-99) Mean Corpuscular Hemoglobin 24.1 pg (27.0-33.0) L Mean Corpuscular Hemoglobin Concent 30.3 g/dL (32.0-36.0) L Red Cell Distribution Width 17.8 % (11.0-15.5) H Platelet Count 340 K/uL (130-400) Mean Platelet Volume 9.1 fL (7.5-10.5) Immature Granulocyte % (Auto) 0.7 % (0-1) Neutrophils (%) (Auto) 48.7 % (40.0-77.0) Lymphocytes (%) (Auto) 39.3 % (21.0-51.0) Monocytes (%) (Auto) 9.6 % (3.0-13.0) Eosinophils (%) (Auto) 1.2 % (0.0-8.0) Basophils (%) (Auto) 0.5 % (0.0-5.0) Neutrophils # (Auto) 2.1 K/uL (1.8-7.7) Lymphocytes # (Auto) 1.7 K/uL (1.0-4.8) Monocytes # (Auto) 0.4 K/uL (0.1-1.0) Eosinophils # (Auto) 0.05 K/uL (0.00-0.70) Basophils # (Auto) 0.02 K/uL (0.00-0.20) Absolute Immature Granulocyte (auto 0.03 K/uL (0-1) Nucleated Red Blood Cells 0.0 % (0.0-0.19) Red Blood Cell Morphology See comments Prothrombin Time 11.2 SEC (9.6-11.6) Prothromb Time International Ratio 1.06 (0.85-1.15) Activated Partial Thromboplast Time 29.9 SEC (26.3-35.5) Sodium Level 143 mmol/L (136-145) Potassium Level 3.5 mmol/L (3.5-5.1) Chloride Level 105 mmol/L (101-111) Carbon Dioxide Level 30 mmol/L (21-32) Blood Urea Nitrogen 18 mg/dL (7-18) Creatinine 0.9 mg/dL (0.5-1.3) Glomerular Filtration Rate Calc 96 mL/min (>90) Random Glucose 92 mg/dL (70-105) Total Calcium 8.1 mg/dL (8.5-10.1) L Magnesium Level 1.70 mg/dL (1.80-2.40) L Total Creatine Kinase 155 U/L (21-232) # Troponin I High Sensitivity 9 ng/L (4-75) B-Type Natriuretic Peptide 63 pg/mL (0-100) Labs Reviewed?: Yes EKG/XRAY/US/CT/MRI EKG Comment 07/25/2024 TIME 12:27 P.M. VENTRICULAR RATE 86 SINUS RHYTHM [place] [address] WAVE ELEVATION OR [place]PRESSION [place] [address] IMAGING REPORT Signed PATIENT: CHRISTELLE NEWELL MR#: [id number] : 1960 SEX: M AGE: 63 LOCATION: [facility] ORDER 18 STATUS: [facility] ER REPORT#: [id number] SERVICE 17 REASON: cp ORDERING PHYSICIAN: SONJA CONKLIN MD PROCEDURE: CXR1VW - CHEST 1VW PORTABLE CHEST RADIOGRAPH INDICATION: cp COMPARISON: 03/29/2024 FINDINGS: Heart size is normal. The pulmonary vascularity and jesusita appear normal. No abnormal pulmonary parenchymal opacity or consolidation identified. No significant pleural effusion noted. No pneumothorax detected. IMPRESSION: No radiographic evidence for any acute cardiopulmonary process. DICTATED BY: ZEINAB PEREZ MD DATE: 07/25/241242 ELECTRONICALLY SIGNED BY: ZEINAB PEREZ MD DATE: 07/25/241244 [facility] MDM: DIFFERENTIAL DIAGNOSIS: Hydration, generalized body weakness, RATIONALE: TESTS CONSIDERED AND ORDERED SECONDARY TO SHARED DECISION MAKING INCLUDE: PREVIOUS OUTSIDE RECORDS REVIEWED: OLD ER VISITS. RISK OF COMPLICATION AND/OR MORBIDITY OR MORTALITY OF PATIENT MANAGEMENT: NONE Patient is a 63-year-old gentleman coming in to complaining of generalized body aches and dehydration. Patient was hydrated IV fluids laboratory workup was negative for acute findings. Patient will be discharged in stable condition with a diagnosis of dehydration. ED Course Orders Procedure Category Date Status Time Cbc With Differential LAB 07/25/24 Complete 12:18 Prothrombin Time With LAB 07/25/24 Complete INR 12:18 B-Type Natriuretic LAB 07/25/24 Complete Peptide 12:18 Chest 1vw RAD 07/25/24 Resulted 12:18 12 Lead Ekg Tracing- EKG 07/25/24 Complete Technical 12:18 Lactated Ringers PHA 07/25/24 Complete 1000ml (Lactated 12:30 Magnesium LAB 07/25/24 Complete 12:18 Creatine Kinase, Total LAB 07/25/24 Complete 12:18 Troponin I High LAB 07/25/24 Complete Sensitivity 12:18 Urinalysis Profile LAB 07/25/24 Logged 12:18 Partial LAB 07/25/24 Complete Thromboplastin Time 12:18 Basic Metabolic Panel LAB 07/25/24 Complete 12:18 Magnesium Oxide PHA 07/25/24 Logged (Mag-Ox) 15:30 Current Medications Medications (Trade) Dose Ordered Sig/Paco Route PRN Reason Start Time Stop Time Status Last Admin Dose Admin Lactated Ringer's 1,000 ml @ 0 mls/hr ONCE ONCE IV 07/25/24 12:30 07/25/24 12:31 DC 07/25/24 13:02 Magnesium Oxide (Mag-Ox) 400 mg ONCE ONCE PO 07/25/24 15:30 07/25/24 15:31 UNV Vital Signs Date Time Temp Pulse Resp B/P (MAP) Pulse Ox O2 Delivery O2 Flow Rate FiO2 07/25/24 12:04 100.0 96 16 108/65 98 Room Air* 0 21 07/25/24 11:56 100.0 103 17 105/66 98 Room Air 0 DX & DISP Disposition: Transfer Departure Impression: Primary Impression: OTHER CHRONIC PAIN Additional Impression: DEHYDRATION Condition: Stable Additional Instructions: FOLLOW-UP WITH PRIMARY CARE PROVIDER IN 1 TO 2 DAYS. TAKE MEDICATIONS DIRECTED HERE IN THE EMERGENCY ROOM. OKAY TO CONTINUE HOME MEDICATIONS UNLESS OTHERWISE DISCUSSED DURING YOUR VISIT IN THE EMERGENCY ROOM TODAY. RETURN TO YOUR NEAREST EMERGENCY ROOM IF SYMPTOMS WORSEN OR IF THERE IS NO IMPROVEMENT. CALL 911 IF YOU NEED IMMEDIATE ASSISTANCE. TAKE TYLENOL [id number] NEEDED AND IF NO CONTRAINDICATIONS ARE PRESENT. INCREASE ORAL HYDRATION. A WOUND CULTURE OR URINE CULTURE WAS ORDERED HERE IN THE EMERGENCY ROOM DEPARTMENT PLEASE FOLLOW-UP WITH PRIMARY CARE PROVIDER AND ADVISE THEM TO GET REPEAT PORTS FROM OUR FACILITY. IF YOU HAD ANY JANNIE WRAP/SPLINTS THAT WERE APPLIED HERE, PLEASE DO NOT REMOVE THEM UNTIL YOU SEE YOUR PRIMARY CARE OR SPECIALTY. Referrals: Referrals: JOCELINE CROSS (PCP) Time of Disposition: 15:14 SONJA CONKLIN MD Jul 25, 2024 13:35
[2024-07-25] MEDS: MAGNESIUM OXIDE 400 MG TABLET PO ONE (15:15)
[2024-07-25 15:27] VITALS: BP 106/62; PULSE 88; RESP 16; TEMP 100; O2SAT 98
--- NOTE | 2024-07-25 15:28 | NUR ---
pt ready to dc however unwilling to allow contact for last picker and does not intend to call anyone
== END 2024-07-25 15:40 | disposition home or self-care (01) ==
LOC: EDH 11:54
DX: G89.29 Other chronic pain (principal); E86.0 Dehydration; R53.1 Weakness; F84.0 Autistic disorder; Z79.1 Long term (current) use of non-steroidal anti-inflammatories (NSAID); Z98.890 Other specified postprocedural states
CPT/HCPCS: 99285; 96360; 71045; 82550; 83735; 84484; 80048; 83880; 85025; 85610; 85730; 36415; 93005; J7120

== ENCOUNTER 2024-08-17 10:30 | Emergency (ER) | payer SELFPAY ==
[~2024-08-17] VITALS: Ht 182.9 cm; Wt 59.0 kg
[2024-08-17 10:32] VITALS: BP 135/88; PULSE 82; RESP 16; TEMP 97.7
[2024-08-17] MEDS ORDERED: KETO10TA2 PO (10:55)
[2024-08-17] MEDS ORDERED: ACET-66 PO (10:55)
[2024-08-17] MEDS: ketOROlac 15MG/ML VIAL (15MG/ML) IM ONE (10:55)
--- NOTE | 2024-08-17 10:56 | ERN ---
General Chief Complaint: Other Problems Stated Complaint: WANTS PAIN MEDS FOR BONE PAIN Time Seen by MD: 10:33 Time Seen by Midlevel: 10:33 Source: patient History of Present Illness Initial Comments The patient is a 63-year-old male presenting to the emergency department for evaluation of arthritic pain. The patient reports having a history of arthritis in his seeking pain medication. Denies any other symptoms or concerns at this time. Patient only wants pain control. Allergies: Coded Allergies: No Known Drug Allergies (Unverified Allergy, Unknown, 04/23/23) Home Meds Active Scripts Acetaminophen (Tylenol) 500 Mg Tab, 1000 MG PO QID for pain, #30 TAB Prov:VANESSA DESIR DO 07/11/24 Ibuprofen (Ibuprofen) 600 Mg Tablet, 600 MG PO Q6H PRN for PAIN, #30 TAB Prov:MONICA SANCHEZ FOUNDATION DIGGER 07/08/24 Lidocaine (Lidoderm Patch 5%) 5 % Patch, 1 PATCH TP DAILY PRN for PAIN, #3 ADH.PATCH 12 hours on/12 hours off localized area of pain to knee Prov:VERNA GENAO 04/23/23 Diclofenac Sodium (Voltaren Arthritis Pain) 1 % Gel..gram., 20 GM TP BID, #100 GM Prov:VERNA GENAO 04/23/23 Past Medical History Past Medical History: No Pertinent History Medical History Other: AUTISM, INSOMNIA Past Surgical History: None Surgical History Other: LEFT HIP, BILAT KNEE ROS Dictation CONSTITUTIONAL: Negative except for HPI HEAD/FACE: Negative except for HPI EENT: Negative except for HPI RESPIRATORY: Negative except for HPI GASTROINTESTINAL/ABDOMINAL: Negative except for HPI GENITOURINARY: Negative except for HPI MUSCULOSKELETAL: Negative except for HPI INTEGUMENTARY: Negative except for HPI NEUROLOGICAL/PSYCH: Negative except for HPI HEMATOLOGIC/LYMPHATIC: Negative except for HPI All Systems Negative, Except as noted above. 13 point review of systems assessed and all negative except for above. Physical Exam Physical Exam Dictation Vital Signs reviewed General Appearance: Alert, oriented x 3, no acute distress, well developed, nourished. Head and Face: non-traumatic. Eyes: PERRL, pink conjunctivas, eyelid no trauma, anterior chamber with arcus senilis. Ears: Pinnas intact and no signs of trauma or erythema ear canals clear and no discharge TM no erythema Nose: No discharge, no bleeding. Oropharynx: Mouth normal, tongue pink, pharynx clear,no erythema, tonsils no exudates, no abscesses noted, mucous membrane moist Neck: Supple, non-tender, no thyromegaly, no masses, no JVD, no bruits Breast:Deferred Chest:No tenderness, no crepitus, no paradoxical movement, no retractions Lungs:Clear, well-ventilated, symmetric, no rales, no wheezing, no rhonchi, no stridor, good breath sounds bilaterally Heart: Regular rate, regular rhythm, no murmur, no gallops Vascular: no peripheral edema, Abdomen: Soft, positive bowel sounds, nondistended, no guarding, nontender, no rebound, no masses no hepatomegaly, no splenomegaly, no Dumas's sign, no hernias. Rectal: Deferred Genital: Deferred Neurological: Normal speech, motor function intact, sensory function intact Musculoskeletal: Neck nontender, full range of motion, back nontender, full range of motion, Extremities: nontender, full range of motion Skin: Color pink, dry, no turgor, no rash, no lacerations, no abrasions, no contusions. Lymphatic: Deferred MDM MDM: The patient is a 63-year-old male presenting to the emergency department for evaluation of arthritic pain. The patient reports having a history of arthritis in his seeking pain medication. Denies any other symptoms or concerns at this time. Patient only wants pain control. Physical examination is unremarkable. Vital signs are stable. We will discharge home Differential diagnosis:. Malingering, arthritic pain There are no social concerns with this patient. Prescription drug management Prescriptions will include: Tylenol Medical management and examination interpretation discussions were had by me with other qualified healthcare professionals as indicated for the patient's care. ED Course Orders Procedure Category Date Status Time Ketorolac PHA 08/17/24 In Process Tromethamine 15mg/Ml 11:00 Current Medications Medications (Trade) Dose Ordered Sig/Paco Route PRN Reason Start Time Stop Time Status Last Admin Dose Admin Ketorolac Tromethamine (toRADol) 15 mg ONCE ONCE IM 08/17/24 11:00 08/17/24 11:01 Vital Signs Date Time Temp Pulse Resp B/P (MAP) Pulse Ox O2 Delivery O2 Flow Rate FiO2 08/17/24 10:32 97.7 82 16 135/88 97 Room Air DX & DISP Disposition: Discharge Departure Impression: Primary Impression: Arthritic-like pain Condition: Stable Scripts Ketorolac Tromethamine (Ketorolac Tromethamine) 10 Mg Tablet 1 TAB PO BID for pain for 5 Days, #10 TAB 0 Refills Prov: ANTHONY YOUNG 08/17/24 Acetaminophen (Acetaminophen) 500 Mg Tablet 1 TAB PO [id number] PRN for pain or fever for 10 Days, #20 TAB 0 Refills Prov: ANTHONY YOUNG 08/17/24 Referrals: SELF,REFERRAL (PCP) Time of Disposition: 10:54 I have reviewed the case, and I agree with, Diagnosis and Plan I performed the substantive portion of the visit. I have reviewed and personally made and approve the management plan that is documented in the note by myself or the MARRY. I acknowledge for responsibility for the patient's manag ement plan. ANTHONY YOUNG August 17, 2024 10:56
== END 2024-08-17 11:04 | disposition home or self-care (01) ==
LOC: EDH 10:30
DX: M89.8X9 Other specified disorders of bone, unspecified site (principal); F84.0 Autistic disorder; Z79.1 Long term (current) use of non-steroidal anti-inflammatories (NSAID); Z79.899 Other long term (current) drug therapy
CPT/HCPCS: 99283; 96372; J1885

== ENCOUNTER 2024-08-29 09:37 | Inpatient (IN) | payer SELFPAY ==
[~2024-08-29] VITALS: Ht 177.8 cm; Wt 59.0 kg
[~2024-08-29 09:37] MED LIST changes: +KETO10TA2 PO
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
--- NOTE | 2024-08-29 11:54 | NUR ---
POSTERIOR SPLINT TO LEFT ELBOW PER DR. CONKLIN, PT TOLERATED WELL, CAPILLARY REFILL LESS THAN 2 SECONDS. SLING P[LACED TO LEFT ARM S/P SPLINT
--- NOTE | 2024-08-29 12:18 | HMCIMG ---
ELBOW COMP 3+VWS LT HISTORY: Pain COMPARISON: None TECHNIQUE: 3 images of left elbow were obtained. FINDINGS: Fracture displacement is seen involving the proximal ulna. No dislocation is seen. Degenerative changes are seen. IMPRESSION: 1. Findings as described above.
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
[2024-08-29] MEDS ORDERED: acetaMINOPHEN 325 MG TAB PO PRN (12:30)
[2024-08-29] MEDS ORDERED: morPHINE 2 MG SYG IVP PRN (12:30)
[2024-08-29] MEDS ORDERED: LACTATED RINGERS 1000ML 1,000 ML IV SCH (12:30)
[2024-08-29] MEDS ORDERED: ondanSETRON 4MG INJ IVP PRN (12:30)
[2024-08-29] MEDS ORDERED: THIAMINE HCL 100 MG/ML 2ML VIAL IVP SCH (12:30)
[2024-08-29 12:37] LABS: BASOPHILS # (AUTO) 0.02 K/uL (0.00-0.20); BASOPHILS % (AUTO) 0.5 % (0.0-5.0); EOSINOPHILS # (AUTO) 0.23 K/uL (0.00-0.70); EOSINOPHILS % (AUTO) 5.9 % (0.0-8.0); HEMATOCRIT 30.9 % (42-54); IMMATURE GRANULOCYTE ABSOLUTE 0.01 K/uL (0-1); LYMPHOCYTES # (AUTO) 1.3 K/uL (1.0-4.8); LYMPHOCYTES % (AUTO) 32.2 % (21.0-51.0); MEAN CORPUSCULAR HEMOGLOBIN 25.1 pg (27.0-33.0); MEAN CORPUSCULAR HGB CONC 30.4 g/dL (32.0-36.0); MEAN CORPUSCULAR VOLUME 82.6 fL (79-99); MONOCYTES # (AUTO) 0.3 K/uL (0.1-1.0); MONOCYTES % (AUTO) 6.4 % (3.0-13.0); NEUTROPHILS # (AUTO) 2.1 K/uL (1.8-7.7); NEUTROPHILS % (AUTO) 54.7 % (40.0-77.0); PLATELET COUNT (AUTO) 256 K/uL (130-400); RED BLOOD CELL COUNT(AUTO) 3.74 MIL/uL (4.50-6.20); RED CELL DISTRIBUTION WIDTH 18.6 % (11.0-15.5); WHITE BLOOD COUNT (AUTO) 3.9 K/uL (4.8-10.8)
[2024-08-29 12:48] LABS: CARBON DIOXIDE 29 mmol/L (21-32); CHLORIDE 107 mmol/L (101-111); CREATININE 0.5 mg/dL (0.5-1.3); GLOMERULAR FILTR. RATE CALC 115 mL/min (>90); GLUCOSE,RANDOM 74 mg/dL (70-105); POTASSIUM 3.4 mmol/L (3.5-5.1); SODIUM SERUM 144 mmol/L (136-145); UREA NITROGEN, BLOOD 18 mg/dL (7-18)
[2024-08-29 12:49] LABS: INR 1.08 (0.85-1.15); PROTHROMBIN TIME 11.4 SEC (9.6-11.6)
[2024-08-29 12:51] LABS: PARTIAL THROMBOPLASTIN TIME 31.8 SEC (26.3-35.5)
[2024-08-29 12:57] LABS: HEMOGLOBIN A1C 5.2 % (4.0-6.0)
[2024-08-29] MEDS ORDERED: PoTASSium chl 10% ELIXIR 20MEQ 20 MEQ/15 ML UDCUP PO PRN (13:00)
[2024-08-29] MEDS ORDERED: PoTASSium chloRIDE 20MEQ ER 20 MEQ ERTAB PO PRN (13:00)
[2024-08-29] MEDS ORDERED: PoTASSium chloRIDE 20MEQ/100ML 100 ML IV PRN (13:00)
[2024-08-29 13:03] LABS: ALANINE AMINOTRANSFERASE 9 U/L (12-78); ALBUMIN 2.8 g/dL (3.5-5.0); ALCOHOL, BLOOD < 3 mg/dL (0-10); ASPARTATE AMINOTRANSFERASE 19 U/L (10-37); BILIRUBIN,DIRECT 0.1 mg/dL (0.0-0.3); BILIRUBIN,TOTAL 0.5 mg/dL (0.2-1.0); CREATINE KINASE, TOTAL 68 U/L (21-232); LACTATE DEHYDROGENASE 218 U/L (81-234); THYROID STIMULATING HORMONE 1.71 uIU/mL (0.36-3.74); TOTAL PROTEIN, SERUM 7.6 g/dL (6.0-8.3)
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
--- NOTE | 2024-08-29 13:32 | NUR ---
patient is a/ox3. patient denies si and/or hi. patient denies visual and auditory disturbances at this time.
--- NOTE | 2024-08-29 13:41 | EKG ---
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
--- NOTE | 2024-08-29 13:43 | NUR ---
COMPUTER SYSTEMS ENGINEER F/U As per ER nurse Adela pt will be transferred to [facility] for higher level of care. Consult order will be cancelled.
--- NOTE | 2024-08-29 14:00 | NUR ---
[facility] Consult: Patient assessed by wound healing team. See wound assessment. Assessment and recommendations provided to primary nurse. Education provided. Addendum: 08/30/24 at 1312 by HEYDI SHAY RN RN/ Amended: Links added.
[2024-08-29 14:07] LABS: HIV 1&2 ANTIBODY Non-Reactive (Negative); HIV-1 p24 Antigen Non-Reactive (Negative)
--- NOTE | 2024-08-29 15:04 | HMCIMG ---
HIP UNILAT 2-3VW LEFT HISTORY: Hip pain COMPARISON: 07/08/2024 TECHNIQUE: 3 images of left hip were obtained. FINDINGS: Destructive changes are again seen involving the left femoral head and left femoral neck unchanged. There is left hip dislocation also unchanged. Appearance is unchanged. Degenerative changes are seen. IMPRESSION: 1. Findings as described above.
--- NOTE | 2024-08-29 15:06 | HMCIMG ---
KNEE 3VWS LT HISTORY: Status post fall COMPARISON: None TECHNIQUE: 3 images of the left knee were obtained. FINDINGS: Femorotibial joint space narrowing and patellofemoral joint space narrowing are seen. Vascular calcifications are seen. There is no acute displaced fracture or dislocation. There is soft tissue swelling. Degenerative changes are seen. IMPRESSION: 1. Findings as described above.
[2024-08-29 17:59] VITALS: BP 168/92; PULSE 82; RESP 16; TEMP 98.2; O2SAT 95
[2024-08-29] MEDS ORDERED: FAMOTIDINE 20MG VIAL IV SCH (21:00)
[2024-08-31 13:13] LABS: ALBUMIN (IFE & ELECTROPHOR) 2.9 g/dL (2.9-4.4); ALBUMIN/GLOBULIN RATIO (IFE) 0.8 (0.7-1.7); ALPHA-1 (IFE & PEP) 0.3 g/dL (0.0-0.4); ALPHA-2 (IFE & PEP) 0.9 g/dL (0.4-1.0); BETA (IFE & ELP) 1.2 g/dL (0.7-1.3); GAMMA GLOBULINS (IFE & ELP) 1.7 g/dL (0.4-1.8); GLOBULIN TOTAL (IFE) 4.1 g/dL (2.2-3.9); IGA (IFE) 619 mg/dL (61-437); IGG (IMMUNOFIXATION) 1829 mg/dL (603-1613); IGM (IMMUNOFIXATION) 184 mg/dL (20-172); M-SPIKE (IEP) Not Observed g/dL (Not Observed)
== END 2024-08-29 14:10 | disposition short-term general hospital (02) | DRG 563 ==
LOC: EDH 09:37 → EDHIP 09:38
PROVIDERS: ADMIT Internal Medicine; ATTEND Internal Medicine
DX: S52.032A Displaced fracture of olecranon process with intraarticular extension of left ulna, initial encounter for closed fracture (principal); F84.0 Autistic disorder; X58.XXXA Exposure to other specified factors, initial encounter; Y93.89 Activity, other specified; Y92.89 Other specified places as the place of occurrence of the external cause; Y99.8 Other external cause status
CPT/HCPCS: 36415; 70450; 70486; 73080; 73090; 73502; 73562; 80048; 80076; 82232; 82550; 83036; 83615; 83735; 83880; 84443; 84484; 85025; 85610; 85730; 86334; 86701; 86850; 86900; 86901; 87390; 93005; 99285; G0378

== ENCOUNTER 2024-10-03 16:18 | Emergency (ER) | payer SELFPAY ==
[~2024-10-03] VITALS: Ht 182.9 cm; Wt 59.0 kg
[2024-10-03 16:43] VITALS: BP 112/75; PULSE 90; RESP 16; TEMP 98.3; O2SAT 98
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
== END 2024-10-03 16:57 | disposition home or self-care (01) ==
LOC: EDH 16:18
DX: S41.111D Laceration without foreign body of right upper arm, subsequent encounter (principal); F84.0 Autistic disorder; I10 Essential (primary) hypertension; Z48.02 Encounter for removal of sutures; Z79.1 Long term (current) use of non-steroidal anti-inflammatories (NSAID); Z98.890 Other specified postprocedural states; X58.XXXD Exposure to other specified factors, subsequent encounter
CPT/HCPCS: 99282